=== PATIENT | male | born 1960 | race Caucasian/White ===

== ENCOUNTER → 2020-04-14 12:37 | Outpatient (BNVA) | payer OTHER, SELFPAY | PROVIDERS: PCP Internal Medicine; Visit Provider Physician Assistant Medical | DX: S00.93XA Contusion of unspecified part of head, initial encounter (principal); S30.0XXA Contusion of lower back and pelvis, initial encounter; W11.XXXA Fall on and from ladder, initial encounter | CPT/HCPCS: 70450; 72100; 72170; 72220; 99204 ==

== ENCOUNTER → 2020-04-16 13:57 | Outpatient (BNVA) | payer OTHER, SELFPAY | PROVIDERS: PCP Internal Medicine; Visit Provider Physician Assistant | DX: S06.9X0A Unspecified intracranial injury without loss of consciousness, initial encounter (principal); S30.0XXA Contusion of lower back and pelvis, initial encounter; W11.XXXA Fall on and from ladder, initial encounter; M46.1 Sacroiliitis, not elsewhere classified | CPT/HCPCS: 99213 ==

== ENCOUNTER → 2020-04-21 14:48 | Outpatient (BNVA) | payer OTHER, SELFPAY | PROVIDERS: Visit Provider Physician Assistant Medical | DX: S00.93XD Contusion of unspecified part of head, subsequent encounter (principal); S39.012D Strain of muscle, fascia and tendon of lower back, subsequent encounter; S30.0XXD Contusion of lower back and pelvis, subsequent encounter; W18.30XD Fall on same level, unspecified, subsequent encounter; M54.16 Radiculopathy, lumbar region | CPT/HCPCS: 99213 ==

== ENCOUNTER → 2020-04-24 10:22 | Outpatient (BNVA) | payer OTHER, SELFPAY | PROVIDERS: Visit Provider Physician Assistant Medical | DX: S30.0XXD Contusion of lower back and pelvis, subsequent encounter (principal); S39.012D Strain of muscle, fascia and tendon of lower back, subsequent encounter; S33.6XXD Sprain of sacroiliac joint, subsequent encounter; W18.30XD Fall on same level, unspecified, subsequent encounter | CPT/HCPCS: 99213 ==

== ENCOUNTER → 2020-05-08 11:13 | Outpatient (BNVA) | payer OTHER, SELFPAY | PROVIDERS: Visit Provider Physician Assistant Medical | DX: S30.0XXD Contusion of lower back and pelvis, subsequent encounter (principal); S39.012D Strain of muscle, fascia and tendon of lower back, subsequent encounter; W18.30XD Fall on same level, unspecified, subsequent encounter; M46.1 Sacroiliitis, not elsewhere classified | CPT/HCPCS: 99213 ==

== ENCOUNTER → 2020-05-23 15:13 | Outpatient (BNVA) | payer OTHER, SELFPAY | PROVIDERS: Visit Provider Physician Assistant Medical | DX: S30.0XXD Contusion of lower back and pelvis, subsequent encounter (principal); S39.012D Strain of muscle, fascia and tendon of lower back, subsequent encounter; W18.30XD Fall on same level, unspecified, subsequent encounter; M46.1 Sacroiliitis, not elsewhere classified | CPT/HCPCS: 99213 ==

== ENCOUNTER → 2020-06-06 15:26 | Outpatient (BNVA) | payer OTHER, SELFPAY | PROVIDERS: Visit Provider Physician Assistant Medical | DX: M46.1 Sacroiliitis, not elsewhere classified (principal); Z91.81 History of falling | CPT/HCPCS: 99213 ==

== ENCOUNTER → 2020-06-16 09:12 | Outpatient (BNVA) | payer OTHER, SELFPAY | PROVIDERS: Visit Provider Physician Assistant | DX: M53.3 Sacrococcygeal disorders, not elsewhere classified (principal); M54.18 Radiculopathy, sacral and sacrococcygeal region; Z91.81 History of falling | CPT/HCPCS: 99213 ==

== ENCOUNTER 2020-06-19 09:42 | Outpatient (REF) | payer OTHER, SELFPAY ==
--- NOTE | ~2020-06-19 | MR_ITS ---
EXAMINATION: MR PELVIS WITHOUT CONTRAST CLINICAL INFORMATION: Persistent low back pain status post fall. COMPARISON: None TECHNIQUE: MRI in a high-field magnet without contrast. FINDINGS: Bone/joints: No acute fracture seen of pelvic bones or bilateral proximal femurs. There is mild bilateral hip joint arthritis. No acute sacral fracture seen. Bilateral SI joints are intact and unremarkable. Limited evaluation of the lower lumbar spine, with increased T2 signal projected over the vertebral bodies, which could be artifactual due to bowel motion. The vertebral body heights are grossly maintained. Moderate disc degeneration with a broad-based posterior disc bulge at L3-L4, L4-L5, L5-S1. There is increased T2 signal in one of the coccygeal segments, reference image 10:21. This is nonspecific in nature, differential consideration includes sequela of trauma. Please clinically correlate. Muscle/tendons: Mild bilateral distal gluteus minimus and medius tendinosis. Bilateral iliopsoas, rectus femoris, common hamstring tendons intact. Iliopsoas muscles appear unremarkable. Additional findings: Bladder is partially distended. There is sigmoid diverticulosis. No adenopathy seen. MR/MR pelvis wo con IMPRESSION: 1. Increased T2 signal in one of the coccygeal segments. This is nonspecific in nature, differential consideration includes sequela of trauma. Please clinically correlate. 2. Mild bilateral hip joint arthritis. 3. Moderate spondylosis in the visualized lower lumbar spine, with posterior disc bulges, detailed above. This is incompletely imaged and evaluated. There is increased T2 signal projected over the visualized lumbar vertebral bodies which could be artifactual. Dedicated MRI of the lumbar spine for further evaluation as clinically warranted. 4. Mild bilateral distal gluteus minimus and medius tendinosis.
== END 2020-06-19 09:43 | disposition home or self-care (01) ==
LOC: HO.MRI 09:42
PROVIDERS: Visit Provider Physician Assistant Medical
DX: M54.5 Low back pain (principal); Z91.81 History of falling
CPT/HCPCS: 72195

== ENCOUNTER 2020-07-02 08:00 | Outpatient (RCR) | payer OTHER, SELFPAY ==
--- NOTE | 2020-07-10 11:59 | MHC.PT.DC ---
[facility] [place] [facility] [place] [facility] [place] Office [address] Caryl Bass [address] [phone] F: [phone] F: [phone] F: [phone] F: [phone] Physical Therapy Discharge Report Diagnosis: SI injury Date of Surgery: N/A Date of Evaluation: 04/24/20 Date of Discharge: 07/03/20 Treatments to Date: 19 Cancellations to Date: 0 No Shows to Date: 0 Discharge Status: Improved Function Independent with HEP Discharge Summary: Pt progressed well over the course of skilled PT making progress on impairments and functional limitations resulting in an improved quality of life. Pt is I with HEP and appropriate to d/c to HEP at this time. Symmetrical innom, sit <> stand into gait with no hesitation, at PLOF. symmetrical gait and proper lift mechanics with 30#. Electronically signed by: Vasiliy Tejada, PT Please sign and return to therapist. Thank you for your referral.
== END 2020-07-12 10:46 | disposition home or self-care (01) ==
LOC: HO.PTCHIC 08:00
PROVIDERS: Visit Provider Physician Assistant Medical
DX: M53.3 Sacrococcygeal disorders, not elsewhere classified (principal)
CPT/HCPCS: 97110; 97112; 97140; 97161

== ENCOUNTER → 2020-07-02 15:29 | Outpatient (BNVA) | payer OTHER, SELFPAY | PROVIDERS: Visit Provider Physician Assistant Medical | DX: M53.3 Sacrococcygeal disorders, not elsewhere classified (principal); M54.18 Radiculopathy, sacral and sacrococcygeal region | CPT/HCPCS: 99213 ==

== ENCOUNTER → 2020-07-15 11:06 | Outpatient (BNVA) | payer OTHER, SELFPAY | PROVIDERS: Visit Provider Physician Assistant | DX: M53.3 Sacrococcygeal disorders, not elsewhere classified (principal); R10.30 Lower abdominal pain, unspecified | CPT/HCPCS: 99213 ==

== ENCOUNTER → 2020-08-06 11:04 | Outpatient (BNVA) | payer OTHER, SELFPAY | PROVIDERS: Visit Provider Physician Assistant Medical | DX: M54.17 Radiculopathy, lumbosacral region (principal) | CPT/HCPCS: 99213 ==

== ENCOUNTER → 2020-08-15 08:11 | Outpatient (BNVA) | payer OTHER, SELFPAY | PROVIDERS: Visit Provider Internal Medicine | DX: M51.36 Other intervertebral disc degeneration, lumbar region (principal) | CPT/HCPCS: 99202 ==

== ENCOUNTER → 2020-08-21 10:47 | Outpatient (BNVA) | payer OTHER, SELFPAY | PROVIDERS: Visit Provider Physician Assistant Medical | DX: M54.16 Radiculopathy, lumbar region (principal) | CPT/HCPCS: 99213 ==

== ENCOUNTER → 2020-09-11 13:01 | Outpatient (BNVA) | payer OTHER, SELFPAY | PROVIDERS: Visit Provider Physician Assistant Medical | DX: M54.16 Radiculopathy, lumbar region (principal) | CPT/HCPCS: 99213 ==

== ENCOUNTER → 2020-10-13 11:23 | Outpatient (BNVA) | payer OTHER, SELFPAY | PROVIDERS: Visit Provider Physician Assistant | DX: M54.16 Radiculopathy, lumbar region (principal) | CPT/HCPCS: 99213 ==

== ENCOUNTER 2020-10-14 08:50 | Outpatient (REF) | payer OTHER, SELFPAY ==
--- NOTE | ~2020-10-14 | MR_ITS ---
EXAMINATION: MR LUMBAR SPINE WITHOUT CONTRAST CLINICAL INFORMATION: Intervertebral disc degeneration. Lumbar radiculopathy. Right lower extremity pain and weakness. Left lower extremity numbness and weakness. COMPARISON: Lumbar spine radiographs 04/14/2020. TECHNIQUE: MRI of the lumbar spine was obtained using routine sequences without contrast. FINDINGS: Alignment is normal. Vertebral body heights are preserved. There mixed degenerative endplate changes at multiple levels. There is loss of intervertebral disc height and T2 signal intensity at multiple levels related to disc degeneration. The tip of the conus medullaris is located at L1. No mass effect on the conus. Visualized distal cord signal intensity is normal. At L1-L2 there is a right central extrusion superimposed upon a bulging disc with caudal subligamentous extension of extruded disc material. Moderate facet degenerative change. Mild canal stenosis. No mass effect on the traversing or foraminal nerve roots. At L2-L3 there is a diffusely bulging disc. Bilateral facet degenerative change. Moderate to severe canal stenosis. There is asymmetric narrowing of the right subarticular zone causing displacement and possible compression of the right traversing L3 nerve roots. Mild mass effect on the foraminal/extraforaminal segment of the right L2 nerve root. At L3-L4 there is a left subarticular extrusion superimposed upon a bulging disc with 0.8 cm caudal subligamentous extension of extruded disc material causing asymmetric compression of left traversing L4 nerve roots. Bilateral facet degenerative change. Mild canal stenosis. Mild mass effect on the foraminal/extraforaminal segment of the right L3 nerve root. At L4-L5 there is a diffusely bulging disc. Bilateral facet degenerative change. No canal stenosis. No mass effect on the traversing or foraminal nerve roots. At L5-S1 there is an asymmetrically bulging disc to the left. Bilateral facet degenerative change. No canal stenosis. There is abutment of the left traversing S1 nerve roots. No foraminal nerve root compression. Limited visualization of the retroperitoneal anatomy reveals no abnormal finding. Psoas and paraspinal muscle groups are symmetric. MR/MR lumbar spine wo con IMPRESSION: There is multilevel degenerative spondylosis of the lumbar spine. Moderate to severe canal stenosis at L2-L3. Mild canal stenosis at L1-L2 and L3-L4. There are varying degrees of mass effect on the traversing and foraminal segments of the nerve roots as described above. For instance there is a left subarticular extrusion at L3-L4 causing asymmetric compression of the left traversing L4 nerve roots.
== END 2020-10-14 08:51 | disposition home or self-care (01) ==
LOC: HO.MRI 08:50
PROVIDERS: Visit Provider Anesthesiology
DX: M51.36 Other intervertebral disc degeneration, lumbar region (principal)
CPT/HCPCS: 72148

== ENCOUNTER → 2020-10-23 10:54 | Outpatient (BNVA) | payer OTHER, SELFPAY | PROVIDERS: Visit Provider Physician Assistant Medical | DX: M51.17 Intervertebral disc disorders with radiculopathy, lumbosacral region (principal) | CPT/HCPCS: 99213 ==

== ENCOUNTER → 2020-11-24 10:48 | Outpatient (BNVA) | payer OTHER, SELFPAY | PROVIDERS: Visit Provider Physician Assistant Medical | DX: M53.3 Sacrococcygeal disorders, not elsewhere classified (principal); M51.17 Intervertebral disc disorders with radiculopathy, lumbosacral region | CPT/HCPCS: 99213 ==

== ENCOUNTER → 2020-12-22 10:49 | Outpatient (BNVA) | payer OTHER, SELFPAY | PROVIDERS: Visit Provider Physician Assistant Medical | DX: M51.36 Other intervertebral disc degeneration, lumbar region (principal) | CPT/HCPCS: 99213 ==

== ENCOUNTER → 2021-01-21 10:44 | Outpatient (BNVA) | payer OTHER, SELFPAY | PROVIDERS: Visit Provider Physician Assistant Medical | DX: S33.2XXD Dislocation of sacroiliac and sacrococcygeal joint, subsequent encounter (principal); X58.XXXD Exposure to other specified factors, subsequent encounter | CPT/HCPCS: 99213 ==

== ENCOUNTER → 2021-02-17 15:35 | Outpatient (BNVA) | payer OTHER, SELFPAY | PROVIDERS: Visit Provider Physician Assistant Medical | DX: S33.2XXD Dislocation of sacroiliac and sacrococcygeal joint, subsequent encounter (principal); X58.XXXD Exposure to other specified factors, subsequent encounter | CPT/HCPCS: 99213 ==

== ENCOUNTER → 2021-03-18 14:48 | Outpatient (BNVA) | payer OTHER, SELFPAY | PROVIDERS: Visit Provider Physician Assistant | DX: S33.2XXD Dislocation of sacroiliac and sacrococcygeal joint, subsequent encounter (principal); X58.XXXD Exposure to other specified factors, subsequent encounter | CPT/HCPCS: 99213 ==

== ENCOUNTER → 2021-04-20 11:14 | Outpatient (BNVA) | payer OTHER, SELFPAY | PROVIDERS: Visit Provider Physician Assistant Medical | DX: S33.2XXD Dislocation of sacroiliac and sacrococcygeal joint, subsequent encounter (principal); W11.XXXD Fall on and from ladder, subsequent encounter | CPT/HCPCS: 99213 ==

== ENCOUNTER → 2021-05-20 15:07 | Outpatient (BNVA) | payer OTHER, SELFPAY | PROVIDERS: Visit Provider Physician Assistant Medical | DX: M53.2X8 Spinal instabilities, sacral and sacrococcygeal region (principal) | CPT/HCPCS: 99213 ==

== ENCOUNTER → 2021-06-17 13:00 | Outpatient (BNVA) | payer OTHER, SELFPAY | PROVIDERS: Visit Provider Physician Assistant Medical | DX: S33.2XXD Dislocation of sacroiliac and sacrococcygeal joint, subsequent encounter (principal); W11.XXXD Fall on and from ladder, subsequent encounter | CPT/HCPCS: 99213 ==

== ENCOUNTER → 2021-07-21 15:50 | Outpatient (BNVA) | payer OTHER, SELFPAY | PROVIDERS: Visit Provider Physician Assistant Medical | DX: S33 Dislocation and sprain of joints and ligaments of lumbar spine and pelvis (principal) | CPT/HCPCS: 99213 ==

== ENCOUNTER → 2021-08-26 11:14 | Outpatient (BNVA) | payer OTHER, SELFPAY | PROVIDERS: Visit Provider Physician Assistant Medical | DX: M43.28 Fusion of spine, sacral and sacrococcygeal region (principal) | CPT/HCPCS: 99213 ==

== ENCOUNTER → 2021-09-28 09:20 | Outpatient (BNVA) | payer OTHER, SELFPAY | PROVIDERS: Visit Provider Physician Assistant Medical | DX: M51.17 Intervertebral disc disorders with radiculopathy, lumbosacral region (principal); M43.28 Fusion of spine, sacral and sacrococcygeal region | CPT/HCPCS: 99213 ==

== ENCOUNTER → 2021-10-28 10:05 | Outpatient (BNVA) | payer OTHER, SELFPAY | PROVIDERS: Visit Provider Physician Assistant Medical | DX: S33.2XXD Dislocation of sacroiliac and sacrococcygeal joint, subsequent encounter (principal); W11.XXXD Fall on and from ladder, subsequent encounter; M54.17 Radiculopathy, lumbosacral region; Z98.1 Arthrodesis status | CPT/HCPCS: 99213 ==

== ENCOUNTER 2021-11-11 16:36 | Outpatient (REF) | payer OTHER, SELFPAY ==
--- NOTE | ~2021-11-11 | MR_ITS ---
EXAMINATION: MR LUMBAR SPINE WITHOUT CONTRAST CLINICAL INFORMATION: Low back pain and hamstring pain. COMPARISON: 10/14/2020 TECHNIQUE: MRI of the lumbar spine was obtained using routine sequences without contrast. FINDINGS: Postsurgical changes of prior right SI joint fusion. Vertebral body heights are normal. No fractures. Minimal right convex lumbar curvature. No spondylolisthesis. Mixed Modic type I and Modic type II marrow changes at L2-L3 are similar to prior. More minimal Modic type II multilevel marrow changes are evident at L1-L2, L3-L4, and L5-S1, most notably around small Schmorl's nodes at the inferior endplates of L1 and L3. There is multilevel degenerative spondylosis throughout the lumbar spine, characterized by loss of intervertebral disc height, intervertebral disc desiccation, endplate osteophytes, and the aforementioned degenerative endplate marrow changes. These findings are most notable at L2-L3. There is tenc-sa-wckivqpx multilevel facet arthropathy. Paraspinal soft tissues are unremarkable. Conus medullaris terminates at the level of L1-L2. Cauda equina are unremarkable. At the level of L1-L2, there is moderate degenerative disc disease with a generalized annular bulge that produces dofw-my-ydcnkpzy central canal narrowing, indenting the ventral thecal sac and abutting the bilateral traversing L2 nerve roots in the subarticular zones. The previously suspected extrusion is better seen on the prior study and not apparent on the current images. Mild facet arthropathy. The bulge narrows the inferior aspects of the neural foramina without significant mass effect upon the exiting nerve roots. At the level of L2-L3, there is txgjqxzi-zx-mzqjzo degenerative disc disease with a diffuse disc bulge. The bulge combines with facet arthropathy and ligamentum flavum thickening to produce iyrbcmjd-yb-nxsqex central canal stenosis which is slightly more pronounced as compared to prior. There is near-complete effacement of the CSF in this region. Posterior annular fissure is more pronounced as compared to prior. Asymmetric mass effect upon the traversing right L3 nerve root in the right subarticular zone is again noted. There is moderate impingement of the exiting right L2 nerve root at the foramen due to facet osteophytes and a foraminal disc osteophytic bulge. More mild narrowing of the left neural foramen by the foraminal component of the disc bulge. At the L3-L4 level, there is jsit-ir-ffdnxtox degenerative disc disease with a diffuse disc bulge that is asymmetric to the left. The caudally directed extrusion in the left subarticular zone is slightly decreased in size as compared to prior. This again extends 1 cm caudal to the superior endplate of L4. Asymmetric compression of the traversing left L4 nerve root is slightly improved as compared to prior. There is kgyq-zx-aiwhcwkb central canal stenosis due to the diffuse disc bulge and facet arthropathy. Additional mild mass effect is evident at the right subarticular zone due to the facet arthropathy and ligamentum flavum thickening. There is persistent rxzs-ru-ohwvcjjs mass effect upon the exiting right L3 nerve roots in the foramen and more minimal mass effect upon the exiting left L3 nerve root. At the L4-L5 level, there is saax-aw-hcespbnl degenerative disc disease with a diffuse annular bulge and udvo-kc-isgjvepm facet arthropathy, asymmetric to the left. Mild central canal narrowing with indentation of ventral thecal sac, similar to prior. Mild mass effect upon the bilateral traversing L5 nerve roots in the subarticular zones. Mild mass effect upon the bilateral exiting L4 nerve roots at the foramina. At the L5-S1 level, there is moderate degenerative disc disease which is asymmetric to the left with a large left lateral disc osteophyte. The jsuz-kp-yvdttzjj left facet arthropathy combines with the disc bulge to produce minimal mass effect upon the traversing left S1 nerve root in the subarticular zone. There is mild extraforaminal mass effect upon the left L5 nerve root due to the aforementioned disc osteophyte complex. Patent central canal. MR/MR lumbar spine wo con IMPRESSION: 1. Progression of the sgqdrhdv-qy-gzzpvp central canal stenosis at L2-L3 due to a slightly increased disc bulge. 2. Slight improvement in the left paracentral/extraforaminal disc extrusion at L3-L4 with slightly diminished mass effect upon the traversing left L4 nerve root. 3. Examination is otherwise minimally changed as compared to the prior study from 10/14/2020. There is multilevel degenerative spondylosis with mild degrees of multilevel central canal and neural foraminal encroachment as detailed above.
== END 2021-11-11 16:37 | disposition home or self-care (01) ==
LOC: HO.MRI 16:36
PROVIDERS: Visit Provider Neurological Surgery
DX: M54.50 Low back pain, unspecified (principal); S76.319A Strain of muscle, fascia and tendon of the posterior muscle group at thigh level, unspecified thigh, initial encounter
CPT/HCPCS: 72148

== ENCOUNTER → 2021-12-01 15:00 | Outpatient (BNVA) | payer OTHER, SELFPAY | PROVIDERS: Visit Provider Internal Medicine | DX: M54.42 Lumbago with sciatica, left side (principal) | CPT/HCPCS: 99213 ==

== ENCOUNTER → 2022-01-06 15:13 | Outpatient (BNVA) | payer OTHER, SELFPAY | PROVIDERS: Visit Provider Physician Assistant Medical | DX: M51.16 Intervertebral disc disorders with radiculopathy, lumbar region (principal) | CPT/HCPCS: 99213 ==

== ENCOUNTER → 2022-02-03 10:03 | Outpatient (BNVA) | payer OTHER, SELFPAY | PROVIDERS: Visit Provider Physician Assistant Medical | DX: M54.16 Radiculopathy, lumbar region (principal); M46.1 Sacroiliitis, not elsewhere classified | CPT/HCPCS: 99213 ==

== ENCOUNTER → 2022-03-03 10:17 | Outpatient (BNVA) | payer OTHER, SELFPAY | PROVIDERS: Visit Provider Physician Assistant Medical | DX: M46.1 Sacroiliitis, not elsewhere classified (principal); M54.16 Radiculopathy, lumbar region | CPT/HCPCS: 99213 ==

== ENCOUNTER → 2022-04-13 11:11 | Outpatient (BNVA) | payer OTHER, SELFPAY | PROVIDERS: Visit Provider Physician Assistant Medical | DX: M46.1 Sacroiliitis, not elsewhere classified (principal); M51.37 Other intervertebral disc degeneration, lumbosacral region; Z98.1 Arthrodesis status | CPT/HCPCS: 99213 ==

== ENCOUNTER → 2022-05-12 11:10 | Outpatient (BNVA) | payer OTHER, SELFPAY | PROVIDERS: Visit Provider Physician Assistant Medical | DX: M53.3 Sacrococcygeal disorders, not elsewhere classified (principal) | CPT/HCPCS: 99213 ==

== ENCOUNTER → 2022-06-14 11:15 | Outpatient (BNVA) | payer OTHER, SELFPAY | PROVIDERS: Visit Provider Physician Assistant Medical | DX: M46.1 Sacroiliitis, not elsewhere classified (principal); M53.3 Sacrococcygeal disorders, not elsewhere classified | CPT/HCPCS: 99213 ==

== ENCOUNTER → 2022-07-14 10:55 | Outpatient (BNVA) | payer OTHER, SELFPAY | PROVIDERS: Visit Provider Physician Assistant Medical | DX: M51.16 Intervertebral disc disorders with radiculopathy, lumbar region (principal); Z91.81 History of falling | CPT/HCPCS: 99213 ==

== ENCOUNTER → 2022-08-16 10:09 | Outpatient (BNVA) | payer OTHER, SELFPAY | PROVIDERS: Visit Provider Internal Medicine | DX: S33.2XXD Dislocation of sacroiliac and sacrococcygeal joint, subsequent encounter (principal); W11.XXXD Fall on and from ladder, subsequent encounter | CPT/HCPCS: 99213 ==

== ENCOUNTER → 2022-09-15 10:55 | Outpatient (BNVA) | payer OTHER, SELFPAY | PROVIDERS: Visit Provider Physician Assistant Medical | DX: M54.41 Lumbago with sciatica, right side (principal); M46.1 Sacroiliitis, not elsewhere classified | CPT/HCPCS: 99213 ==

== ENCOUNTER 2024-05-09 12:59 | Emergency (ER) | payer OTHER, SELFPAY ==
[2024-05-09 13:21] VITALS: BP 152/98; PULSE 102; RESP 20; TEMP 36.3; O2SAT 97
--- NOTE | 2024-05-09 13:25 | ED.GENADULT ---
HPI - General Adult General Chief complaint: Skin/Abscess/Foreign Body Stated complaint: L Side Pain, Rash On L Side Time Seen by Provider: 05/09/24 13:25 Source: patient Limitations: no limitations History of Present Illness ED Provider: Lou Gomez PA-C HPI narrative: 64-year-old male with a history of chronic lumbar disc disease presents with left flank pain x3 days. Patient developed pain over mid to lower flank Tuesday. Tuesday morning he woke with a rash within the same distribution. The rash radiates from mid back around the side down to the lower quadrant just above the groin. It was red, vesicular an exquisitely painful. Related Data Home Medications ?Medication ?Instructions ?Recorded ?Confirmed acetaminophen 500 mg tablet 500 mg PO QID PRN 08/15/20 (Tylenol Extra Strength) loratadine-pseudoephedrine ER 10 1 tab PO DAILY 08/15/20 mg-240 mg tablet,extended [id number] (Claritin-D 24 Hour) Previous Rx's ?Medication ?Instructions ?Recorded cyclobenzaprine 10 mg tablet 10 mg PO TID PRN muscle spasm #20 04/13/22 tabs acetaminophen 500 mg capsule 1,000 mg (2 x 500 mg) PO Q6H PRN 07/14/22 pain #60 caps ibuprofen 800 mg tablet 800 mg PO TID PRN pain #60 tabs 07/14/22 lidocaine 5 % topical patch 1 patch topical DAILY #30 ea 07/14/22 oxycodone 5 mg tablet 5 mg PO Q6H PRN pain #10 tabs 05/09/24 valacyclovir 1 gram tablet 1,000 mg PO Q8H #21 tabs 05/09/24 Allergies Allergy/AdvReac Type Severity Reaction Status Date / Time codeine [Codeine] Allergy Mild HIVES Verified 05/09/24 13:24 Sulfa (Sulfonamide Allergy Mild UNKNOWN Verified 05/09/24 13:24 Antibiotics) Review of Systems Review of Systems: Yes all other systems are reviewed and are negative Constitutional: Constitutional: Denies fatigue and Denies fever(s) Cardiovascular: Cardiovascular: Denies chest pain and Reports dyspnea Respiratory: Respiratory: Reports dyspnea Gastrointestinal: Gastrointestinal: Denies abdominal pain Genitourinary: Genitourinary: Denies hematuria, Denies dysuria and Reports flank pain Endocrine: Endocrine: Denies fatigue PMFSH Past Medical History Attestation statement: The following information was validated with the patient. Medical History (Updated 05/09/24 @ 13:39 by [facility] En[place]) Degenerative disc disease, lumbar Hepatitis C Surgical History (Updated 08/15/20 @ 08:50 by Spencer Garza MD) History of discectomy Previous back surgery Social History Social History Advance Directives: No Advance Directives Information Provided: Yes Physical Exam ED Vital Signs: Vital Signs - 24 hr 05/09/24 13:21 Temperature 97.3 F Pulse Rate 102 H Respiratory Rate 20 Blood Pressure 152/98 H Pulse Oximetry 97 Oxygen Delivery Method Room Air BMI result Body Mass Index 30.0 Const Other: Alert Orientation/consciousness: patient oriented x3 Resp Effort & Inspection: normal respiratory effort Cardio Other: Normal peripheral perfusion Skin Other: Vesicular raised red erythematous rash that spans from left mid back wraps around the side to left lower abdomen, does not cross the midline Neuro General: patient oriented x3, gait normal, no focal motor deficits and CN's II-XI intact bilaterally Psych Other: Calm cooperative Medical Decision Making Medical Decision Making MDM Narrative: 64-year-old male with a history of chronic lumbar disc disease presents with left flank pain x3 days. Patient developed pain over mid to lower flank Tuesday. Tuesday morning he woke with a rash within the same distribution. The rash radiates from mid back around the side down to the lower quadrant just above the groin. It was red, vesicular an exquisitely painful. Problem: Age History: Per patient I have considered the following differential diagnoses: Musculoskeletal strain, renal colic, UTI, pyelonephritis, shingles Plan: Given the distribution I did consider underlying renal colic, however the patient has shingles no indication for labs or imaging. We will be sending with pain meds and antiviral. Discharge Plan Discharge Clinical Impression: Herpes zoster Patient Disposition: Home, Self-Care Instructions: Shingles (ED) Additional Instructions: You have shingles. See home care instructions. Until the rash resolves in you complete the course of antiviral medication, be sure to stay away from immunocompromised people, infants, elderly, or anyone . Take the oxycodone as needed for pain, to note this medication can be constipating, you should use eicf-iuo-kjepwlt Colace and MiraLax daily to help prevent constipation. You can alternate with the use of qsqa-tpk-psqyole ibuprofen 600 mg taken every 6 hours, for your pain. Take this medication with food. Use the valacyclovir as directed, complete the course of medication. Follow up with your primary care provider as needed. Prescriptions: New valacyclovir 1 gram tablet 1,000 mg PO Q8H Qty: 21 0RF oxycodone 5 mg tablet 5 mg PO Q6H PRN (Reason: pain) Qty: 10 0RF Rx Instructions: Partial Fill upon patient request. No Action cyclobenzaprine 10 mg tablet 10 mg PO TID PRN (Reason: muscle spasm) Qty: 20 0RF Rx Instructions: Do not drive or do safety sensitive work while taking this medication acetaminophen 500 mg capsule 1,000 mg PO Q6H MDD 3g/day PRN (Reason: pain) Qty: 60 1RF lidocaine 5 % adhesive patch,medicated 1 patch topical DAILY Qty: 30 2RF Rx Instructions: leave on most painful area for up to 12 hrs ibuprofen 800 mg tablet 800 mg PO TID PRN (Reason: pain) Qty: 60 2RF Print Language: Greenlandic
[2024-05-09 14:07] VITALS: BP 152/98; PULSE 102; RESP 20; TEMP 36.3; O2SAT 97
== END 2024-05-09 14:07 | disposition home or self-care (01) ==
PROVIDERS: Emergency Provider Emergency Medicine
DX: B02.8 Zoster with other complications (principal); M54.50 Low back pain, unspecified; R21 Rash and other nonspecific skin eruption; R10.2 Pelvic and perineal pain; Z79.899 Other long term (current) drug therapy
CPT/HCPCS: 99282; 99283